=== PATIENT | male | born 1960 | race Caucasian/White ===

== ENCOUNTER 2018-12-25 06:32 | Day surgery (SDC) | payer BC ==
[2018-12-25] VITALS (19 sets, daily range): BP systolic 107–144; BP diastolic 69–94
[~2018-12-25] VITALS: Ht 325.1 cm; Wt 58.4 kg
[2018-12-25] MEDS ORDERED: ALBU8.5H8 INH (06:54)
[2018-12-25] MEDS ORDERED: TIOT18CA3 INH (06:54)
[2018-12-25] MEDS ORDERED: phenylephrine 1% Nasal spray (extra-strength) 15 ML bottle **bronch room NS ONE ×2 (07:05→07:34)
[2018-12-25] MEDS ORDERED: LIDOCAINE 4% (40MG/ML) topical solution 50ml **BRONCH ONLY MM ONE (07:05)
[2018-12-25] MEDS ORDERED: LIDOcaine Viscous 15ml cup MM ONE (07:05)
[2018-12-25] MEDS ORDERED: morphine 10mg/ml inj. IM PRN (07:05)
[2018-12-25] MEDS ORDERED: LIDOCAINE 4% (40MG/ML) topical solution 50ml **BRONCH ONLY ONE (07:33)
[2018-12-25] MEDS ORDERED: lidocaine 2% viscous 15 ML cup ***bronch room only MM ONE (07:33)
[2018-12-25] MEDS ORDERED: epiNEPHrine 1 MG/ML 1 ml ampule **BRONCH ONLY ONE (07:33)
[2018-12-25] MEDS ORDERED: MIDAZolam 5mg/ml 2ml vial IV ONE (07:55)
[2018-12-25] MEDS ORDERED: midazolam 2 mg/2 ml injection ONE (08:01)
[2018-12-25] MEDS ORDERED: fentaNYL/PF 50MCG/1 ML 2ML syringe ONE (08:01)
[2018-12-25 08:05] LABS: BASOPHILS # (AUTO) 0.1 X10'3 (0-0.2); BASOPHILS % (AUTO) 0.6 % (0-1); EOSINOPHILS # (AUTO) 0.3 X10'3 (0-0.9); HEMATOCRIT 43.5 % (42.0-52.0); HEMOGLOBIN 14.5 g/dl (14.0-17.9); LYMPHOCYTES # (AUTO) 2.4 X10'3 (1.1-4.8); LYMPHOCYTES % (AUTO) 18.7 % (21-51); MEAN CORPUSCULAR HEMOGLOBIN 32.9 PG (27.0-31.0); MEAN CORPUSCULAR HGB CONC 33.4 g/dL (33.0-36.5); MEAN CORPUSCULAR VOLUME 98.7 FL (78-98); MEAN PLATELET VOLUME 7.7 FL (7.4-10.4); MONOCYTES % (AUTO) 7.8 % (2-12); NEUTROPHILS # (AUTO) 9.2 X10'3 (1.8-7.7); NEUTROPHILS % (AUTO) 70.9 % (42-75); PLATELET COUNT 242 X10'3 (140-440); RED CELL DISTRIBUTION WIDTH 13.9 % (11.5-14.5)
== END 2018-12-25 11:38 | disposition home or self-care (01) ==
LOC: SSTAY O 06:32
PROVIDERS: ATTEND Internal Medicine Pulmonary Disease
DX: C34.11 Malignant neoplasm of upper lobe, right bronchus or lung (principal); C78.1 Secondary malignant neoplasm of mediastinum; Z72.0 Tobacco use; J44.9 Chronic obstructive pulmonary disease, unspecified; R05 Cough; R07.9 Chest pain, unspecified
CPT/HCPCS: 31628; 36415; 76499; 82378; 85025; 87015; 87070; 87116; 87206; 94640; 94760; J0171; J2250; J2270; J3010; 31622; 31623

== ENCOUNTER 2019-02-06 10:45 | Day surgery (SDC) | payer BC ==
[~2019-02-06] VITALS: Ht 175.3 cm; Wt 59.0 kg
[~2019-02-06 10:45] MED LIST: ALBU8.5H8 INH; TIOT18CA3 INH
[2019-02-06] MEDS ORDERED: normal saline 1000ml 1,000 ML IV PRN (11:10)
[2019-02-06 11:15] VITALS: BP 120/70
[2019-02-06] MEDS ORDERED: IBUP-1984 PO (12:15)
[2019-02-06] MEDS ORDERED: NICO-687 TOP (12:15)
[2019-02-06] MEDS ORDERED: DOCU-148 PO (12:15)
[2019-02-06] MEDS ORDERED: LIDOcaine 1%/PF 5ML 10 MG/ML VIAL ONE (13:02)
[2019-02-06] MEDS ORDERED: heparin sodium, porcine/PF 100unit/ml 5ML syringe ONE (13:03)
[2019-02-06] MEDS ORDERED: fentaNYL/PF 50MCG/1 ML 2ML syringe ONE (13:03)
[2019-02-06] MEDS ORDERED: midazolam 2 mg/2 ml injection ONE (13:03)
[2019-02-06 14:37] VITALS: BP 102/72
[2019-02-06 14:45] VITALS: BP 135/40
[2019-02-06 15:00] VITALS: BP 111/77
[2019-02-06 15:15] VITALS: BP 120/71
[2019-02-06 15:30] VITALS: BP 110/67
== END 2019-02-06 15:40 | disposition home or self-care (01) ==
LOC: SSTAY O 10:45
PROVIDERS: ATTEND Radiology Vascular & Interventional Radiology
DX: C34.91 Malignant neoplasm of unspecified part of right bronchus or lung (principal); J44.9 Chronic obstructive pulmonary disease, unspecified; Z98.890 Other specified postprocedural states; Z79.899 Other long term (current) drug therapy
CPT/HCPCS: 36415; 36561; 76937; 77001; 85610; 99152; 99153; C1788; C1894; J1642; J2250; J3010; J7030; A6213